=== PATIENT | female | born 1990 | race Caucasian/White ===

== ENCOUNTER 2025-09-17 14:17 | Inpatient (IN) | payer MEDICARE, OTHER ==
[2025-09-17] VITALS (20 sets, daily range): BP systolic 86–112; BP diastolic 46–95
[~2025-09-17] VITALS: Ht 167.6 cm; Wt 53.5 kg
[2025-09-17] MEDS ORDERED: EPINEPHrine HCL 4 MG in NS 250 ML IV SCH (14:25)
[2025-09-17] MEDS ORDERED: NS 1,000 ML IV SCH ×3 (14:25→16:25)
[2025-09-17] MEDS ORDERED: PHENYLEPHRINE HCL IV ONE (14:25)
[2025-09-17] MEDS ORDERED: NS IV ONE (14:25)
[2025-09-17] MEDS ORDERED: Ipratropium/Albuterol SulF 2.5-0.5MG/3 ML Amp ONE (14:32)
[2025-09-17 14:33] LABS: Calcium, Ionized (POC) 0.95 mmol/L (1.10-1.46); Chloride (POC) 78 mmol/L (98-108); Creatinine (POC) 2.3 mg/dL (0.6-1.0); Glucose (ISTAT POC) >700 mg/dL (70-99); Hematocrit (POC) 33.0 % (36.0-46.0); Hemoglobin (POC) 11.2 g/dL (12.0-16.0); Potassium (POC) 7.1 mmol/L (3.5-5.5); Sodium (POC) 107 mmol/L (135-148); Total CO2 (POC) 8 mmol/L (21-32)
[2025-09-17] MEDS ORDERED: Insulin Regular 100 Unit/ML 1ML Dose IV ONE ×2 (14:35→15:15)
[2025-09-17] MEDS ORDERED: Sodium Bicarb 8.4% 1 MEQ/ML 50 ML Vial IV ONE ×2 (14:35→15:15)
[2025-09-17] MEDS ORDERED: Albuterol 2.5 MG/3 ML VIAL INH SCH ×2 (14:35→15:15)
[2025-09-17 14:44] LABS: Hematocrit 36.3 % (33.0-51.0); Hemoglobin 9.7 g/dL (11.5-16.0); Mean Corpuscular HGB Conc 26.7 g/dL (31.5-36.5); Mean Corpuscular Volume 116 fL (80-100); NRBC ABSOLUTE 0.02 K/mm3 (0.00-0.02); NRBC Auto 0.2 /100 WBC (0.0-0.2); Platelet Count 270 K/mm3 (150-400); RDW Coefficient Variation 12.2 % (11.7-14.2); RDW Standard Deviation 52.1 fL (35.1-46.3)
[2025-09-17 15:05] LABS: BAND PERCENT MAN 5 % (0-8); BASOPHILS ABSOLUTE MAN 0.00 K/mm3 (0.00-0.23); BASOPHILS PERCENT MAN 0 % (0-2); EOSINOPHILS ABSOLUTE MAN 0.25 K/mm3 (0.00-0.68); EOSINOPHILS PERCENT MAN 2 % (0-6); LYMPHOCYTES ABSOLUTE MAN 1.89 K/mm3 (0.84-5.20); LYMPHOCYTES PERCENT MAN 15 % (21-46); METAMYELOCYTE ABSOLUTE MAN 0.25 K/mm3 (0.00-0.00); METAMYELOCYTE PERCENT MAN 2 % (0-0); MONOCYTES ABSOLUTE MAN 0.88 K/mm3 (0.16-1.47); MONOCYTES PERCENT MAN 7 % (4-13); MYELOCYTE ABSOLUTE MAN 0.50 K/mm3 (0.00-0.00); MYELOCYTE PERCENT MAN 4 % (0-0); NEUTROPHILS ABSOLUTE MAN 8.82 K/mm3 (1.96-9.15); SEG NEUTROPHILS PERCENT MAN 65 % (41-73)
[2025-09-17] MEDS ORDERED: Calcium Gluconate 10% 100 MG/ML INJ IV ONE (15:15)
[2025-09-17 15:16] LABS: Calcium, Ionized (POC) 0.96 mmol/L (1.10-1.46); Chloride (POC) 84 mmol/L (98-108); Creatinine (POC) 2.3 mg/dL (0.6-1.0); Glucose (ISTAT POC) >700 mg/dL (70-99); Hematocrit (POC) 28.0 % (36.0-46.0); Hemoglobin (POC) 9.5 g/dL (12.0-16.0); Potassium (POC) 6.6 mmol/L (3.5-5.5); Sodium (POC) 114 mmol/L (135-148); Total CO2 (POC) 10 mmol/L (21-32)
[2025-09-17 15:20] LABS: Magnesium, Blood 3.6 mg/dL (1.6-2.4)
[2025-09-17] MEDS ORDERED: Insulin Human Regular 100 UNIT in NS 100 ML IV SCH (15:20)
[2025-09-17 16:01] LABS: Source, Urine Foley catheter
[2025-09-17 16:03] LABS: Bilirubin, Urine Neg (Neg); Color, Urine Yellow (P-Yellow); Glucose Qualitative, Urine 4+ (Neg); Ketones, Urine 1+ (Neg); Leukocyte Esterase, Urine Neg (Neg); Protein, Urine 3+ (Neg); Specific Gravity, Urine 1.015 (1.003-1.022); Urobilinogen, Urine NORM (Normal)
[2025-09-17 16:10] LABS: Red Blood Cells, Urine TNTC /hpf (0-2)
[2025-09-17] MEDS ORDERED: FLU VACC TS2025-26(6MOS UP)/PF 45 MCG/0.5 ML SYRINGE IM SCH (16:10)
[2025-09-17 16:11] LABS: Alanine Aminotransfer (ALT/SGP 206.0 U/L (12-78); Albumin, Blood 3.1 g/dL (3.4-5.0); Albumin/Globulin Ratio 1.1 (0.8-1.8); Anion Gap 44.0 mmol/L (3-11); Aspartate Aminotrans (AST/SGOT 417.0 U/L (12-37); Bilirubin, Total 0.9 mg/dL (0.1-1.0); Blood Urea Nitrogen 51.0 mg/dL (8-24); CO2, Blood 4.0 mmol/L (21-32); Calcium, Blood 8.4 mg/dL (8.5-10.1); Chloride, Blood 68.0 mmol/L (98-108); Creatinine, Blood 2.03 mg/dL (0.40-1.00); Globulin, Blood 2.9 g/dL (2.2-4.0); Glucose, Blood 1698.0 mg/dL (70-99); Potassium, Blood 7.2 mmol/L (3.5-5.5); Sodium, Blood 109.0 mmol/L (136-145); Total Protein, Blood 6.0 g/dL (6.4-8.2)
[2025-09-17] MEDS ORDERED: Ondansetron HCl 2 MG / ML 2ML Vial IV PRN (16:25)
[2025-09-17] MEDS ORDERED: Sodium Bicarb 8.4% Inj 150 MEQ in Dextrose 5% 1,000 ML IV SCH ×2 (17:05→18:00)
[2025-09-17 17:09] LABS: pH Blood Venous 6.88 (7.34-7.37)
[2025-09-17] MEDS ORDERED: Vancomycin (Pharmacy Consult) IV PRN (17:10)
[2025-09-17] MEDS ORDERED: Vasopressin 20 UNITS in NS 100 ML IV SCH (17:10)
[2025-09-17] MEDS ORDERED: Piperacillin/Tazobactam Sod 3.375 GM in NS 100 ML IV ONE (17:10)
[2025-09-17] MEDS ORDERED: Calcium Chloride 10% 2,000 MG in NS 100 ML IV ONE (17:25)
[2025-09-17] MEDS ORDERED: NS 250 ML IV PRN (17:50)
[2025-09-17 17:57] LABS: Prothrombin Time Results 12.3 Sec (9.7-11.5)
[2025-09-17 18:09] LABS: Hematocrit 32.3 % (33.0-51.0); Hemoglobin 9.7 g/dL (11.5-16.0); Mean Corpuscular HGB Conc 30.0 g/dL (31.5-36.5); NRBC ABSOLUTE 0.03 K/mm3 (0.00-0.02); NRBC Auto 0.1 /100 WBC (0.0-0.2); Platelet Count 204 K/mm3 (150-400); RDW Coefficient Variation 11.9 % (11.7-14.2); RDW Standard Deviation 45.5 fL (35.1-46.3)
[2025-09-17 18:17] LABS: Mean Corpuscular Volume 104 fL (80-100)
[2025-09-17 18:18] LABS: Magnesium, Blood 3.3 mg/dL (1.6-2.4)
[2025-09-17 18:43] LABS: Alanine Aminotransfer (ALT/SGP 493.0 U/L (12-78); Albumin, Blood 2.8 g/dL (3.4-5.0); Albumin/Globulin Ratio 1.0 (0.8-1.8); Anion Gap 38.0 mmol/L (3-11); Aspartate Aminotrans (AST/SGOT 1358.0 U/L (12-37); Bilirubin, Total 1.2 mg/dL (0.1-1.0); Blood Urea Nitrogen 52.0 mg/dL (8-24); CO2, Blood 6.0 mmol/L (21-32); Calcium, Blood 8.2 mg/dL (8.5-10.1); Chloride, Blood 81.0 mmol/L (98-108); Creatinine, Blood 2.06 mg/dL (0.40-1.00); Globulin, Blood 2.8 g/dL (2.2-4.0); Glucose, Blood 1461.0 mg/dL (70-99); Phosphorus, Blood 13.5 mg/dL (2.5-4.9); Potassium, Blood 5.7 mmol/L (3.5-5.5); Total Protein, Blood 5.6 g/dL (6.4-8.2)
[2025-09-17 18:46] LABS: Sodium, Blood 119.0 mmol/L (136-145)
--- NOTE | 2025-09-17 18:51 | NUR ---
"Spiritual Caare | family request Came to bedside and facilitated a short life review with spouse. Pt. is intubated and not responsive. Prayed with spouse. SPouse verbalized gratitude for the spiritual care visit. During the visit the spouse agreed to change Pt. to DNR."
[2025-09-17 18:52] LABS: BAND PERCENT MAN 7 % (0-8); BASOPHILS ABSOLUTE MAN 0.00 K/mm3 (0.00-0.23); BASOPHILS PERCENT MAN 0 % (0-2); EOSINOPHILS ABSOLUTE MAN 0.00 K/mm3 (0.00-0.68); EOSINOPHILS PERCENT MAN 0 % (0-6); LYMPHOCYTES ABSOLUTE MAN 4.45 K/mm3 (0.84-5.20); LYMPHOCYTES PERCENT MAN 17 % (21-46); MONOCYTES ABSOLUTE MAN 0.00 K/mm3 (0.16-1.47); MONOCYTES PERCENT MAN 0 % (4-13); MYELOCYTE ABSOLUTE MAN 0.52 K/mm3 (0.00-0.00); MYELOCYTE PERCENT MAN 2 % (0-0); NEUTROPHILS ABSOLUTE MAN 21.23 K/mm3 (1.96-9.15); SEG NEUTROPHILS PERCENT MAN 74 % (41-73)
[2025-09-17] MEDS ORDERED: Etomidate 2MG / ML 10ML Vial XX ONE (19:17)
[2025-09-17] MEDS ORDERED: Phenylephrine HCl 100 MCG/ML-NS 10MLSYR (1MG/10ML) IV ONE (19:17)
--- NOTE | 2025-09-17 19:26 | NUR ---
Summary. Pt arrived to ICU at approximately 1645. Pt unresponsive, on ventilator, no sedation. arrived at approximately 1800, updated on pt condition. [facility] called to bedside. After conversation with air twister winder and , requested patient code status be changed to DNR. Dr. Brown contacted and code status updated to reflect 's wishes. Propofol started for pt comfort, see emar. Report given to nightshift RN, see chart for further details.
--- NOTE | 2025-09-17 19:53 | NUR ---
ASSUMPTION OF CARE CARE OF PT ASSUMED FOLLOWING BEDSIDE SHIFT REPORT FROM DAY RN. PT IN DISTRESS AND NON RESPONSIVE, WITH VENTILATOR IN PLACE, MAKING LEAKY CUFF-LIKE NOISES AND SETTINGS AT 24/375/5.0/30%. TEMP IS 100 F AND RISING. WILL APPLY COLD COMPRESSES OR COLD BLANKET. PROPOFOL STARTED DURING SHIFT REPORT STARTED AT 20 AND TITRATED UP TO 35. HR 144, SINUS RHYTHM, BP SOFT WITH 10 OF LEVO ON BOARD. BICARB INFUSING AT 150. INFUSION ARM, RIGHT UPPER, FEELS FIRM AND EDEMATOUS. WILL TRANSFER BICARB TO RIGHT FOOT AND INITIATE INFILTRATION PROTOCOL PER PHARMACY. CAMPBELL IN PLACE INSULIN INFUSING AT 5.9 ML/HR WILL REVIEW AND CONTINUE PLAN OF CARE
[2025-09-17] MEDS ORDERED: Cetylpyridinium Chloride 1 EA MISC MT SCH (20:00)
[2025-09-17 20:32] LABS: Anion Gap 30.0 mmol/L (3-11); Blood Urea Nitrogen 52.0 mg/dL (8-24); CO2, Blood 11.0 mmol/L (21-32); Chloride, Blood 88.0 mmol/L (98-108); Creatinine, Blood 2.03 mg/dL (0.40-1.00); Potassium, Blood 4.7 mmol/L (3.5-5.5); Sodium, Blood 124.0 mmol/L (136-145)
[2025-09-17 20:34] LABS: Calcium, Blood 12.0 mg/dL (8.5-10.1)
[2025-09-17 20:35] LABS: Glucose, Blood 1334.0 mg/dL (70-99)
[2025-09-17] MEDS ORDERED: Sodium Bicarb 8.4% 50 mEq Syringe IV ONE (21:57)
[2025-09-17 22:24] LABS: pH Blood Venous 7.30 (7.34-7.37)
[2025-09-17 22:38] LABS: BASOPHILS ABSOLUTE AUTO 0.03 K/mm3 (0.00-0.23); BASOPHILS PERCENT AUTO 0 % (0-2); EOSINOPHILS ABSOLUTE AUTO 0.00 K/mm3 (0.00-0.68); EOSINOPHILS PERCENT AUTO 0 % (0-6); Hematocrit 28.6 % (33.0-51.0); Hemoglobin 9.5 g/dL (11.5-16.0); IMMATURE GRAN ABSOLUTE AUTO 0.18 K/mm3 (0.00-0.10); IMMATURE GRAN PERCENT AUTO 1 % (0-1); LYMPHOCYTES ABSOLUTE AUTO 2.20 K/mm3 (0.84-5.20); LYMPHOCYTES PERCENT AUTO 13 % (21-46); MONOCYTES ABSOLUTE AUTO 0.28 K/mm3 (0.16-1.47); MONOCYTES PERCENT AUTO 2 % (4-13); Mean Corpuscular HGB Conc 33.2 g/dL (31.5-36.5); NEUTROPHILS ABSOLUTE AUTO 14.12 K/mm3 (1.96-9.15); NEUTROPHILS PERCENT AUTO 84 % (41-73); NRBC ABSOLUTE 0.02 K/mm3 (0.00-0.02); NRBC Auto 0.1 /100 WBC (0.0-0.2); Platelet Count 270 K/mm3 (150-400); RDW Coefficient Variation 12.1 % (11.7-14.2); RDW Standard Deviation 41.1 fL (35.1-46.3)
[2025-09-17 22:44] LABS: Mean Corpuscular Volume 93 fL (80-100)
[2025-09-17 22:49] LABS: Magnesium, Blood 2.5 mg/dL (1.6-2.4)
[2025-09-17 22:56] LABS: Anion Gap 28.0 mmol/L (3-11); Blood Urea Nitrogen 55.0 mg/dL (8-24); CO2, Blood 16.0 mmol/L (21-32); Chloride, Blood 83.0 mmol/L (98-108); Creatinine, Blood 2.32 mg/dL (0.40-1.00); Glucose, Blood 1335.0 mg/dL (70-99); Potassium, Blood 4.0 mmol/L (3.5-5.5); Sodium, Blood 123.0 mmol/L (136-145)
[2025-09-17 22:59] LABS: Calcium, Blood 9.3 mg/dL (8.5-10.1)
[2025-09-18] VITALS (80 sets, daily range): BP systolic 67–165; BP diastolic 41–152
[2025-09-18] MEDS ORDERED: Piperacillin/Tazobactam Sod 3.375 GM in NS 100 ML IV SCH
[2025-09-18] MEDS ORDERED: Heparin Sodium,Porcine 5,000 UNIT/0.5 ML SDV SC SCH
[2025-09-18] MEDS ORDERED: Hydrogen Peroxide 1.5 % Solution MT SCH
[2025-09-18 01:18] LABS: Glucose, Blood 1167 mg/dL (70-99)
[2025-09-18 02:50] LABS: Glucose, Blood 1085 mg/dL (70-99)
[2025-09-18 03:46] LABS: pH Blood Venous 7.39 (7.34-7.37)
[2025-09-18 03:50] LABS: BASOPHILS ABSOLUTE AUTO 0.02 K/mm3 (0.00-0.23); BASOPHILS PERCENT AUTO 0 % (0-2); EOSINOPHILS ABSOLUTE AUTO 0.02 K/mm3 (0.00-0.68); EOSINOPHILS PERCENT AUTO 0 % (0-6); Hematocrit 27.4 % (33.0-51.0); Hemoglobin 9.7 g/dL (11.5-16.0); IMMATURE GRAN ABSOLUTE AUTO 0.08 K/mm3 (0.00-0.10); IMMATURE GRAN PERCENT AUTO 1 % (0-1); LYMPHOCYTES ABSOLUTE AUTO 2.77 K/mm3 (0.84-5.20); LYMPHOCYTES PERCENT AUTO 22 % (21-46); MONOCYTES ABSOLUTE AUTO 0.22 K/mm3 (0.16-1.47); MONOCYTES PERCENT AUTO 2 % (4-13); Mean Corpuscular HGB Conc 35.4 g/dL (31.5-36.5); NEUTROPHILS ABSOLUTE AUTO 9.46 K/mm3 (1.96-9.15); NEUTROPHILS PERCENT AUTO 75 % (41-73); NRBC ABSOLUTE 0.00 K/mm3 (0.00-0.02); NRBC Auto 0.0 /100 WBC (0.0-0.2); Platelet Count 209 K/mm3 (150-400); RDW Coefficient Variation 12.1 % (11.7-14.2); RDW Standard Deviation 37.8 fL (35.1-46.3)
[2025-09-18 03:54] LABS: Mean Corpuscular Volume 86 fL (80-100)
[2025-09-18 04:05] LABS: Prothrombin Time Results 12.4 Sec (9.7-11.5)
[2025-09-18 04:11] LABS: Magnesium, Blood 2.4 mg/dL (1.6-2.4)
[2025-09-18 04:14] LABS: Alanine Aminotransfer (ALT/SGP 465 U/L (12-78); Albumin, Blood 2.4 g/dL (3.4-5.0); Albumin/Globulin Ratio 0.9 (0.8-1.8); Anion Gap 20 mmol/L (3-11); Aspartate Aminotrans (AST/SGOT 575 U/L (12-37); Bilirubin, Total 0.6 mg/dL (0.1-1.0); Blood Urea Nitrogen 51 mg/dL (8-24); CO2, Blood 26 mmol/L (21-32); Calcium, Blood 8.8 mg/dL (8.5-10.1); Chloride, Blood 88 mmol/L (98-108); Creatinine, Blood 2.30 mg/dL (0.40-1.00); Globulin, Blood 2.6 g/dL (2.2-4.0); Glucose, Blood 957 mg/dL (70-99); Phosphorus, Blood 3.7 mg/dL (2.5-4.9); Potassium, Blood 3.5 mmol/L (3.5-5.5); Sodium, Blood 130 mmol/L (136-145); Total Protein, Blood 5.0 g/dL (6.4-8.2); Vancomycin, Random 31.5 ug/mL
[2025-09-18] MEDS ORDERED: Pantoprazole Sodium 40 MG Injection IV SCH (06:00)
[2025-09-18 06:14] LABS: Glucose, Blood 811 mg/dL (70-99)
--- NOTE | 2025-09-18 06:28 | NUR ---
SHIFT SUMMARY PT LYING IN BED VENTILATED AND SEDATED ON PROPOFOL 25, FOR VENT COMPLAINCE. PT IS UNRESPONSIVE, WITH MOST REFLEXES ABSENT, INCLUDING COUGH/GAG AND PUPIL RESPONSE TO LIGHT. TEMP IS 99.9 WITH COLD BLANKET OFF. TMAX WAS 102.2 AND TMIN WAS 98.9. WILL REAPPLY COLD BLANKET. PT IS EXHIBITING SHIVERING LIKE MOVEMENTS IN BOTH ARMS, INTERMITTENTLY. PT IN SINIUS TACH RHYTHM WITH RATE OF 115 AND BP IS SOFT ON LEVO 10 AND VASOPRESSIN .04. MAP GOAL OF 65 HAS BEEN MAINTAINED FOR MOST OF SHIFT. NIBP MEASUREMENTS HAVE BEEN QUESTIONABLE IN ACCURACY AT TIMES. VENT SETTINGS ARE ACVC 24/375/40% (INCREASED FROM 30% 2 HOURS AGO)/5.0 PEEP. MAINTAINING SATURATION > 92%. PT HAD ONE DESATURATION EVENT AT 0600 THAT WAS SEEMINGLY AMELIORATED BY SITTING HER UP IN BED. MINIMAL SECRETIONS IN MOUTH AND ETT. ETT IS 7.0 AND 22CM AT TEETH. OG TUBE IN PLACE TO LIS WITH BROWN/BILOUS CONTENTS. 64CM. CAMPBELL IN PLACE DRAINED 1750 ML OF PALE YELLOW URINE TO GRAVITY (MORE PALE SECOND HALF OF SHIFT). PT HAS INSULIN INFUSING AT 7.4MLHR AND LAT GLUCOSE WAS 811.NS TKO IS ACCOMPANYING THE INSULIN INTO THE LEFT ARM PIV. LEVO AND PROPOFOL AND INFUSING INTO RIGHT LORENZ I/O. VASO PRESSN INTO RIGHT ANKLE PIV. A RIGHT UA PIV INFILTRATED 1L OF BICARB AND THIS WAS TREATED WITH HYALURANIDASE INJECTIONS AND ELEVATION. BEDSIDE SHIFT REPORT GIVEN TO ONCOMING RN.
--- NOTE | 2025-09-18 08:30 | NUR ---
NOTIFIED DR DAVIS OF PTS CURRENT ACCESS. LEVOPHED INCREASED TO 12MCG/MIN RUNNING THROUGH IO IN RLE. PER DR DAVIS OK TO TITRATE LEVO TO MAINTAIN MAP >65. AT BEDSIDE. NEUROLOGICALLY PT NOT RESPONSIVE, NO RESPONSE TO PAINFUL STIMULI, PUPIL IS FIXED AND NOT RESPONSIVE, NO CORNEAL REFLEX. UPPER ARMS ARE FLEXED AND BENT AT THE ELBOWS AND HELD CLOSE TO THE BODY, HANDS ARE CLINCHED, LEGS EXTENDED WITH FEED POINTED DOWNWARDS. ANSWERED HUSBANDS QUESTIONS ABOUT COMFORT CARE THIS MORNING, TO DISCUSS WITH DR DAVIS TODAY.
[2025-09-18 08:39] LABS: Glucose, Blood 627 mg/dL (70-99)
[2025-09-18] MEDS ORDERED: Enoxaparin 30 MG/0.3 ML SYR SC SCH (09:00)
[2025-09-18] MEDS ORDERED: ADMELOG100 UNIT/2 (09:56)
[2025-09-18] MEDS ORDERED: LAMO100 PO (09:57)
[2025-09-18] MEDS ORDERED: METF500 PO (09:57)
[2025-09-18] MEDS ORDERED: METO5A PO (09:58)
[2025-09-18] MEDS ORDERED: OMEP20ER PO (09:58)
[2025-09-18] MEDS ORDERED: POTA8 PO (09:59)
[2025-09-18 11:32] LABS: pH Blood Venous 7.40 (7.34-7.37)
[2025-09-18 12:11] LABS: Anion Gap 14.0 mmol/L (3-11); Blood Urea Nitrogen 51.0 mg/dL (8-24); CO2, Blood 33.0 mmol/L (21-32); Calcium, Blood 9.1 mg/dL (8.5-10.1); Chloride, Blood 97.0 mmol/L (98-108); Creatinine, Blood 2.38 mg/dL (0.40-1.00); Glucose, Blood 238.0 mg/dL (70-99); Potassium, Blood 3.6 mmol/L (3.5-5.5); Sodium, Blood 140.0 mmol/L (136-145)
--- NOTE | 2025-09-18 13:19 | NUR ---
NOTIFIED DR DAVIS PT CURRENT VS. SINUS TACH HR 145-149. BP 64/50 MAP 56 ON LEVO 20MCG/MIN THROUGH IO IN RLE. BG 115. VERBAL ORDER RECIEVED TO INCREASE LEVO TO 30MCG/MIN AND START D5 AT 100ML/HR. ORDERS PLACED.
--- NOTE | 2025-09-18 13:22 | NUR ---
NOTIFIED DR DAVIS OF CURRENT ACCESS AND THAT LEVO CURRENTLY RUNNING AT 12MCG/MIN THROUGH IO IN RLE. NO CHANGE IN ORDERS AT THIS TIME. OK PER DR DAVIS TO INCREASE TO MAINTAIN MAP >65 THROUGH IO LINE AT THIS TIME. AT BEDSIDE.
--- NOTE | 2025-09-18 13:34 | NUR ---
CALL TO TO CHECK IN ON TIMING OF FAMILY THIS EVENING. LEFT MESSAGE TO RETURN CALL
--- NOTE | 2025-09-18 17:47 | NUR ---
SHIFT SUMMARY NEURO: UNRESPONSIVE TO PAIN. R EYE NOT PRESENT PRIOR TO ADMISSION, L EYE NO REACTIVE TO LIGHT, FIXED AND DILATED. CORNEAL REFLEX IS NOT PRESENT. NO COUGH OR GAG PRESENT. LIMBS ARE EXTENDED AT PT SIDE, BUE HANDS ARE IN TIGHT FISTS WITH CURLED FINGERS. PT FEBRILE TMAX 105.2. TYLENOL GIVEN VIA OG TUBE, COOLING BLANKETS PRESENT ON TOP OF PT AND BELOW. ICE PACKS PRESENT TO GROING AND BILAT AXILLA. CARDIAC: STACH, HR 110-150S. LEVOPHED 10MCG/MIN AT START OF SHIFT, CURRENTLY RUNNING AT 20MCG/MIN. PER DR DAVIS MAX DOSE 30MCG/MIN. B/P VARIABLE THIS SHIFT. VASPORESSIN AT 0.04. HR IMPROVED AFTER FEVER REDUCED. PULM: LUNG ARE COARSE, SCATTERED RHONCHI. ON VENTILATOR, CURRENT SETTINGS ACVC 24/375/10/60. PT HAD A COUPLE DESATURATION EVENTS THIS AM, AFTER SETTIINGS CHANGED, INCREASE IN PEEP AND FIO2 THIS RESOLVED. CORNELL SECREATIONS MINIMAL. GI: ABDOMEN IS MILDLY DISTENDED. OG TUBE PRESENT TO LIS WITH YELLOW/BROWN CONTENTS. PASSING FLATUS, NO BM. : CAMPBELL DRAINING YELLOW URINE TO GRAVITY. DM1: REMAINS ON INSULIN GTT AT 2.8 WITH CBG Q 2. WELL D5 AT 100ML/HR. FAMILY DISCUSSION WITH DR OLIVAS THIS AM PLAN FOR PALLATIVE EXTUBATION AFTER FAMILY HAS HAD A CHANCE TO SAY GOODBYE. PLAN FOR FAMILY TO ARRIVE SOMETIME AFTER 1900. ATTEMPTED TO CALL PT TO CHECK IN ON ARRIVAL TIME, LEFT MESSAGE TO RETURN CALL ON UNIDENTIFIED VM. ADMISSION MED LIST AND ALLERIES UPDATED THIS AM. VISITED THIS AM UNTIL APPROX 0930 THEN LEFT.
--- NOTE | 2025-09-18 19:22 | NUR ---
ASSUME CARE: BEDSIDE REPORT RECIEVED FROM [facility] RN. PT INTUBATED AND SEDATED, RASS -5. PT UNRESPONSIVE, LEFT EYE FIXED (RIGHT EYE NOT PRESENT DUE TO PRIOR SURGICAL REMOVAL) AND DILATED, POSTURING NOTED. PROPOFOL REPORTED TO BE OFF ALL DAY. SBP 100s, MAP>65, LEVO AT 18 MCG/KG/MIN AND VASO AT 0.04 AT START OF SHIFT. SPO2>95% ON VENT. OGT IN PLACE, CLAMPED. TEMP CAMPBELL DRAINING TO GRAVITY. REPORT RECIEVED FROM [facility] THAT FAMILY WILL BE HERE THIS EVENING FOR PT TO POSSIBLY GO COMFORT CARE. WILL UPDATED NEEDED.
[2025-09-18] MEDS ORDERED: FentaNYL Citrate 50 MCG/ML 2 ML Injection IV ONE (21:10)
[2025-09-18] MEDS ORDERED: FentaNYL Citrate 50 MCG/ML 2 ML Injection IV PRN (21:10)
[2025-09-18] MEDS ORDERED: LORazepam 2 MG/ML 1ML Injection IV ONE (21:10)
--- NOTE | 2025-09-18 23:24 | NUR ---
COMFORT CARE: PT EXTUBATED AND MEDICATIONS OFF AT 2323. FAMILY AT BEDSIDE.
== END 2025-09-18 23:43 | DRG 871 ==
LOC: ER 14:17 → ICUE 16:08
PROVIDERS: Internal Medicine Critical Care Medicine; Student in an Organized Health Care Education/Training Program; ADMIT Hospitalist
PROC: 0BH17EZ Insertion of Endotracheal Airway into Trachea, Via Natural or Artificial Opening (ICD-10-PCS; principal; 2025-09-17)
PROC: 0DH67UZ Insertion of Feeding Device into Stomach, Via Natural or Artificial Opening (ICD-10-PCS; 2025-09-17)
PROC: 5A12012 Performance of Cardiac Output, Single, Manual (ICD-10-PCS; 2025-09-17)
PROC: 4A033R1 Measurement of Arterial Saturation, Peripheral, Percutaneous Approach (ICD-10-PCS; 2025-09-17)
PROC: 3E033XZ Introduction of Vasopressor into Peripheral Vein, Percutaneous Approach (ICD-10-PCS; 2025-09-17)
PROC: 3E03329 Introduction of Other Anti-infective into Peripheral Vein, Percutaneous Approach (ICD-10-PCS; 2025-09-17)
PROC: 5A1945Z Respiratory Ventilation, 24-96 Consecutive Hours (ICD-10-PCS; 2025-09-17)
DX: A41.9 Sepsis, unspecified organism (principal); E10.10 Type 1 diabetes mellitus with ketoacidosis without coma; G93.6 Cerebral edema; R65.21 Severe sepsis with septic shock; E87.1 Hypo-osmolality and hyponatremia; N17.9 Acute kidney failure, unspecified; M96.A1 Fracture of sternum associated with chest compression and cardiopulmonary resuscitation; G93.1 Anoxic brain damage, not elsewhere classified; M96.A2 Fracture of one rib associated with chest compression and cardiopulmonary resuscitation; Z66 Do not resuscitate; Z51.5 Encounter for palliative care; I46.8 Cardiac arrest due to other underlying condition; K21.9 Gastro-esophageal reflux disease without esophagitis; M79.7 Fibromyalgia; E87.5 Hyperkalemia; E83.51 Hypocalcemia; F41.9 Anxiety disorder, unspecified; I10 Essential (primary) hypertension; E03.9 Hypothyroidism, unspecified; E78.5 Hyperlipidemia, unspecified; F25.0 Schizoaffective disorder, bipolar type; F43.10 Post-traumatic stress disorder, unspecified; Z96.0 Presence of urogenital implants; Z98.890 Other specified postprocedural states; Z82.61 Family history of arthritis; Z83.3 Family history of diabetes mellitus; Z83.6 Family history of other diseases of the respiratory system; Z81.8 Family history of other mental and behavioral disorders; Z79.4 Long term (current) use of insulin; Z79.899 Other long term (current) drug therapy
CPT/HCPCS: 36415; 36600; 51702; 70450; 71045; 71260; 80047; 80048; 80053; 80202; 81001; 82010; 82330; 82803; 82947; 83735; 83880; 84100; 84484; 84703; 85014; 85025; 85610; 85730; 87040; 87086; 94002; 94003; 94644; 94645; 94664; 94762; 96365-59; 96368; 96375-59; 99285-25; A9270; J0166; J0612; J1644; J1815; J2060; J2371; J2470; J2543; J2704; J3010; J3373; J3470; J7030; J7050; J7070; Q9967